=== PATIENT | female | born 1980 | race Hispanic/Latino ===

== ENCOUNTER 2019-10-30 08:40 | Day surgery (SDC) | payer BC ==
[2019-10-28 14:45] VITALS: BP 158/67
[2019-10-28 15:06] LABS: BASOPHILS % (AUTO) 0.6 % (0.0-5.0); EOSINOPHILS % (AUTO) 2.4 % (0.0-8.0); HEMATOCRIT 25.4 % (36-48); LYMPHOCYTES % (AUTO) 23.2 % (21.0-51.0); MEAN CORPUSCULAR HEMOGLOBIN 24.8 pg (27.0-33.0); MEAN CORPUSCULAR HGB CONC 30.3 g/dL (32.0-36.0); MEAN CORPUSCULAR VOLUME 81.7 fL (79-99); MONOCYTES % (AUTO) 4.9 % (3.0-13.0); NEUTROPHILS % (AUTO) 68.6 % (40.0-77.0); PLATELET COUNT (AUTO) 381 K/uL (130-400); RED BLOOD CELL COUNT(AUTO) 3.11 MIL/uL (4.00-5.50); RED CELL DISTRIBUTION WIDTH 15.6 % (11.0-15.5); WHITE BLOOD COUNT (AUTO) 7.8 K/uL (4.8-10.8)
--- NOTE | 2019-10-28 16:12 | NUR ---
PT STATES SHE HAS A BOIL TO RIGHT BUTTOCKS, DRY, NOT DRAINING, NO PUS, APPLIES NEOSPORIN. SELENA NICOLAS INFECTION CONTROL NOTIFIED, STATED TO PLACE PT ON CONTACT PRECAUTION. OR SHINGLE CARRIER NOTIFIED. Addendum: 10/28/19 at 1614 by THERESA BURGER RN RN Amended: Links added.
--- NOTE | 2019-10-28 16:17 | NUR ---
BP MED PT STATES SHE WAS PRESCRIBED BP MED BUT DOES NOT TAKE IT, PCP AWARE.
[2019-10-28 16:32] LABS: CREATININE 0.6 mg/dL (0.5-1.5); POTASSIUM 3.9 mmol/L (3.5-5.1)
--- NOTE | 2019-10-29 16:24 | NUR ---
LABS INFORMED DR. CANSECO ASST OF ABNORMAL H/H. SHE WILL INFORM DR. CANSECO
[~2019-10-30] VITALS: Ht 153.7 cm; Wt 93.4 kg
[2019-10-30] VITALS (15 sets, daily range): BP systolic 119–153; BP diastolic 64–82
[~2019-10-30 08:40] MED LIST: LACTATED RINGERS 1000ML 1,000 ML IV SCH; METF-446 PO
[2019-10-30] MEDS ORDERED: SODIUM CHLORIDE 0.9% 1000ML 1,000 ML IV ONE (10:48)
[2019-10-30] MEDS: CALDOLOR 800MG+NS 250ML 250 ML IV SCH ×2 (11:00→12:48)
[2019-10-30] MEDS: CEFAZOLIN SODIUM 1 GM VIAL IVP SCH ×2 (11:00→12:40)
[2019-10-30] MEDS ORDERED: DEXAMETHASONE SOD PHOSPHATE 10MG/ML 1ML VIAL ONE ×2 (12:09→12:12)
[2019-10-30] MEDS ORDERED: MIDAZOLAM HCL 1 MG/ML 2ML VIAL ONE (12:09)
[2019-10-30] MEDS ORDERED: LIDOCAINE PF 2% 5ML ABBOJECT ONE (12:09)
[2019-10-30] MEDS ORDERED: SUCCINYLCHOLINE 200MG/10ML SYR ONE (12:09)
[2019-10-30] MEDS ORDERED: PROPOFOL 10 MG/ML 20ML VIAL IV ONE (12:10)
[2019-10-30] MEDS ORDERED: ROCURONIUM 10MG/1ML SYR 10 MG/ML ML ONE (12:10)
[2019-10-30] MEDS ORDERED: NEOSTIGMINE 5MG/5ML SYR IV ONE (12:10)
[2019-10-30] MEDS ORDERED: FENTANYL CITRATE PF 50 MCG/1 ML 2ML VIAL ONE (12:10)
[2019-10-30] MEDS ORDERED: GLYCOPYRROLATE 1 MG/5 ML SYRINGE ONE (12:10)
[2019-10-30] MEDS ORDERED: ONDANSETRON HCL 4 MG/2 ML VIAL ONE ×2 (12:10→14:06)
[2019-10-30] MEDS ORDERED: MORPHINE SULFATE 2 MG/ML 1ML SYG ONE (14:08)
== END 2019-10-30 15:45 | disposition home or self-care (01) ==
LOC: DAH 08:40
PROVIDERS: ATTEND Obstetrics & Gynecology
DX: N93.9 Abnormal uterine and vaginal bleeding, unspecified (principal); N92.1 Excessive and frequent menstruation with irregular cycle; D50.0 Iron deficiency anemia secondary to blood loss (chronic); N84.0 Polyp of corpus uteri; E11.9 Type 2 diabetes mellitus without complications; E66.9 Obesity, unspecified; I10 Essential (primary) hypertension; Z98.890 Other specified postprocedural states; Z98.51 Tubal ligation status
CPT/HCPCS: 36415; 58563; 80048; 82948 ×2; 85025; 86850; 86900; 86901; 88305; 88312; A4213; A4215; A4221; A4222; A4223; A4351; A4355; A4663; A6260; J0330; J0690; J1100 ×2; J1741; J2001; J2250; J2405 ×2; J2704; J2710; J3010; J3490; J7030 ×3

== ENCOUNTER 2025-09-30 06:18 | Day surgery (SDC) | payer BC ==
[2025-09-27 11:49] LABS: IMMATURE GRANULOCYTE ABSOLUTE 0.03 K/uL (0-1); NUCLEATED RED BLOOD CELLS 0.0 % (0.0-0.19); PLATELET COUNT (AUTO) 312 K/uL (130-400); RED BLOOD CELL COUNT(AUTO) 4.77 MIL/uL (4.00-5.50); RED CELL DISTRIBUTION WIDTH 13.2 % (11.0-15.5); WHITE BLOOD COUNT (AUTO) 8.3 K/uL (4.8-10.8)
[2025-09-27 11:52] VITALS: BP 123/77; PULSE 84; RESP 14; TEMP 98
[2025-09-27 11:58] LABS: CREATININE 0.7 mg/dL (0.5-1.0); GLOMERULAR FILTR. RATE CALC 108.0 mL/min (>90); GLUCOSE,RANDOM 130.0 mg/dL (70-105); SODIUM SERUM 141.0 mmol/L (136-145); UREA NITROGEN, BLOOD 14.0 mg/dL (7-18)
[2025-09-27 12:06] LABS: INR 1.0 (0.85-1.15)
--- NOTE | 2025-09-27 18:45 | EKG ---
[facility] Test Date: 2025-09-27 Test Time: 11:41:38 Pat Name: JAYDA LUA Department: [facility] Room: Gender: F [place] Crew Pusher: [id number] : 1980 Requested By: SCOTT LUA Order Number: [id number] Reading MD: Dakota Hayden Measurements Intervals [place] Rate: 84 P: 30 GA: 138 QRS: 6 QRSD: 88 T: 37 QT: 369 QTc: 436 Interpretive Statements Sinus rhythm No previous ECG available for comparison Electronically Signed On 09-27-2025 20:13:20 BOX COVERING MACHINE OPERATOR by Dakota Hayden Please click the below link to view image of tracing.
[~2025-09-30] VITALS: Ht 152.4 cm; Wt 93.3 kg
[2025-09-30] VITALS (17 sets, daily range): BP systolic 113–173; BP diastolic 53–92; PULSE 80–99; RESP 14–18; TEMP 97.1–97.9
[~2025-09-30 06:18] MED LIST changes: +EMPA10TA PO; +ERGO500093 PO; -LACTATED RINGERS 1000ML 1,000 ML IV SCH; +LOSA25TA41 PO; +ROSU10TA98 PO
[2025-09-30] MEDS: 0.9%NACL 1000ML 1,000 ML IV ONE (07:13)
[2025-09-30] MEDS ORDERED: FAMOTIDINE 20MG VIAL IV ONE (07:19)
[2025-09-30] MEDS ORDERED: SUGAMMADEX SODIUM 200 MG/2 ML VIAL IV ONE (07:19)
[2025-09-30] MEDS ORDERED: LIDOCAINE PF 100MG/5ML (2%) SYRINGE 5ML ONE (07:22)
[2025-09-30] MEDS ORDERED: NEOSTIGMINE METHYLSULFATE 1MG/ML IV ONE (07:22)
[2025-09-30] MEDS ORDERED: GLYCOPYRROLATE 0.2 MG/ML 5 ML VIAL ONE (07:22)
[2025-09-30] MEDS ORDERED: MIDAZOLAM HCL 1 MG/ML 2ML VIAL ONE (07:23)
[2025-09-30] MEDS ORDERED: SUCCINYLCHOLINE CHLORIDE 20 MG/ML 10 ML VIAL ONE (07:23)
[2025-09-30] MEDS: INDOCYANINE GREEN 25 MG VIAL IJ ONE (08:00)
[2025-09-30] MEDS ORDERED: IOHEXOL-350 50ML VIAL IV ONE (09:57)
--- NOTE | 2025-09-30 10:00 | PN ---
GENERAL SURGERY PROGRESS NOTE Date/Time Patient Seen: [09/30/2025 at 10:00 a.m. ] Problem List: [ ] Interval History: [Postop day 0. Pain tolerable with the p.r.n. medication.] Physical Examination: GENERAL: [No acute distress.] ABD: [Incisions clean, dry and intact, Dermabond in place Vital Signs (last 8hr) Date Time Temp Pulse Resp B/P (MAP) Pulse Ox O2 Delivery O2 Flow Rate FiO2 09/30/25 07:00 97.9 80 17 120/80 97 Room Air Laboratory: [ ] Chemistry Labs: Test 09/30/25 07:05 Range/Units Whole Blood Glucose 124 H 70-110 MG/DL Diagnostics / Radiology: [Copy/Paste Echos/Imaging Report here] Impression and Plan: [ Plan is for discharge home in the next few hours as long as patient tolerating p.o., ambulatory and pain under control. Discussed with the patient and family. They understand and agree.] LIYA LUA PAC Sep 30, 2025 10:00
--- NOTE | 2025-09-30 10:01 | OP ---
Operative Note: DATE OF PROCEDURE: 09/30/25 SURGEON: SCOTT LUA MD FACS MAKING MACHINE OPERATOR: Ryan Lua MD PA-C ANESTHESIA: General and Local ANESTHESIOLOGIST/BEAM PRESS [place] [facility] [place] PREOPERATIVE DIAGNOSIS: Cholelithiasis - symptomatic POSTOPERATIVE DIAGNOSIS: As above SYNOPSIS: Cholecystectomy, Intraoperative cholangiogram, trans-cystic ductal exploration performed without immediate complication PROCEDURE: 1. Robotic assisted cholecystectomy with intraoperative cholangiogram 2. Trans cystic common duct exploration with clearance of common bile ESTIMATED BLOOD LOSS: Minimal, less than 20 cc INDICATIONS: As above DESCRIPTION OF PROCEDURE: After standard precautions preparations were undertaken a Veress needle and optical trocar were used to enter the abdominal cavity. All other instruments were placed under direct vision. The robotic system was docked in the standard fashion. We began by retracting the fundus of the gallbladder cephalad and working around the infundibulum. A critical view of safety was achieved by identifying a single ductal and single arterial structure entering the infundibulum. We placed clips on the artery and divided it however it felt as though the cystic duct had debris within the duct so a single clip was placed on the going side. A ductotomy was made with a no significant flushing bile. We began to milk the cystic duct distally from the junction of the common bile duct with some thick mucus and debris but could not elicit free flow of clean bile. We had utilized IC green during the case to eliminate the ductal system and we are confident in the appropriate ductal anatomy however this appeared to be an issue related to stones and debris blocking the cystic duct and potentially the common bile duct. We placed a stiff cholangiogram catheter through the abdominal wall and placed it through the cystic ductotomy. We flushed with saline to remove some of the debris. We are able to pass the catheter through a cystic duct valve and with a combination of flushing and suction flushing and suctioned we removed the catheter and had a clean flow of bile through our cystic ductotomy. After these maneuvers a formal cholangiogram was undertaken and demonstrated free flow of bile through the cystic duct into the common bile duct with the elimination of the common hepatic duct and hepatic radicles as well as free flow of contrast into the duodenum. We placed the final clips on the cystic duct and divided the duct. We utilized monopolar cautery to remove the gallbladder from the attachments of the gallbladder fossa. It was placed in an Endo-Catch bag and removed from the abdominal cavity. The fascia was closed to prevent future hernia at that site. All instrument counts were verified as correct prior to ending the case. SCOTT LUA MD Sep 30, 2025 10:01
[2025-09-30] MEDS ORDERED: PROMETHAZINE HCL 25 MG/ML 1ML AMPULE IM PRN (11:00)
--- NOTE | 2025-09-30 11:13 | NUR ---
5 INCISIONS TO ANTERIOR ABDOMEN. DERMABOND TO FIVE INCISIONS. NO ACTIVE BLEEDING OR DRAINAGE NOTED. NO REDNESS OR SWELLING NOTED. DERMABOND DRY AND INTACT.
--- NOTE | 2025-10-08 11:55 | HMCIMG ---
INTRAOPERATIVE CHOLANGIOGRAM INDICATION: OR laparoscopic cholecystectomy TECHNIQUE: 3 matrix spot films submitted using the C-arm for intraoperative laparoscopic cholangiogram. COMPARISON: None FINDINGS: A catheter is seen entering the cystic duct. Contrast fills the common hepatic and common bile duct with normal flow of the contrast into the duodenal sweep without evidence of obstruction, strictures or choledocholithiasis. Contrast is also present in the proximal right and left hepatic ducts. IMPRESSION: Normal intraoperative cholangiogram as reported.
== END 2025-09-30 11:44 | disposition home or self-care (01) ==
LOC: DAH 06:18
PROVIDERS: ATTEND Surgery
DX: K80.10 Calculus of gallbladder with chronic cholecystitis without obstruction (principal); I10 Essential (primary) hypertension; E78.00 Pure hypercholesterolemia, unspecified; E11.9 Type 2 diabetes mellitus without complications; E66.01 Morbid (severe) obesity due to excess calories; Z68.41 Body mass index [BMI] 40.0-44.9, adult; Z98.891 History of uterine scar from previous surgery; Z79.899 Other long term (current) drug therapy
CPT/HCPCS: 80048; 84703; 85025; 85610; 85730; 86850 ×2; 86900 ×2; 86901 ×2; 36415 ×2; 93005; 47564; 82948 ×2; 81025; 88304; 74300; A4223 ×2; A4600; A6260; S2900; A4663; J7030 ×2; A4215 ×2; C1758; J1308; J3010 ×4; J1100; J0330; J0665; J3490 ×3; J2003; J2250; J2704; J2405; J1885; J2710; Q9967; J0690; A4930 ×2; A4213; A4222; A4221; A4216; 76000